=== PATIENT | male | born 1935 | race Caucasian/White ===

== ENCOUNTER 2019-05-27 17:24 | Emergency (ER) | payer MEDICARE ==
[2019-05-27 17:49] VITALS: BP 111/64; PULSE 80; RESP 18; TEMP 98.1
--- NOTE | 2019-05-27 18:16 | ED ---
General Adult HPI - General Chief complaint: Allergic Reaction Stated complaint: allergic reaction to medication Time Seen by Provider: 05/27/19 17:55 Source: patient Mode of arrival: ambulatory Limitations: no limitations - History of Present Illness Initial comments: Patient presents to the ED stating that he took a new medication called Myrbetriq for the first time at about 10:30 AM this morning, and about 2.5 hours later, he developed tingling along his upper lip diffusely and dizziness. Patient states that he has since developed different areas of extremity achiness. Patient states that his symptoms have all now resolved. Patient feels that his symptoms may be side effects of this new medication that he was started on today. Pt denies trauma or injury, fever or chills, rash/pruritus, tongue/lip/throat swelling, dysphagia, headache, focal weakness, visual changes, speech difficulty, chest pain, dyspnea, palpitations, syncope, abdominal pain, nausea/vomiting/diarrhea, bloody or melanotic stools, dysuria or urinary symptoms, or any other symptoms or complaints. - Related Data Home Medications Medication Instructions Recorded Confirmed Carvedilol [Coreg] 3.125 mg PO BID 07/13/16 05/27/19 Doxepin HCl [SINEquan] 50 mg PO HS 07/13/16 05/27/19 Doxepin [SINEquan] 30 mg PO HS 07/13/16 05/27/19 Levothyroxine Sodium [Synthroid] 150 mcg PO DAILY 07/13/16 05/27/19 Multivitamins, Thera [Multivitamin] 1 tab PO BID 07/13/16 05/27/19 Prevagen 10 mg PO DAILY 07/13/16 05/27/19 Rosuvastatin Calcium [Crestor] 5 mg PO HS 07/13/16 05/27/19 cycloSPORINE [Restasis] 1 drop BOTH EYES BID 07/13/16 05/27/19 Artificial Tears-Hypromellose 1 drops BOTH EYES TID 05/27/19 05/27/19 [Artificial Tear Drops] Mirabegron [Myrbetriq] 25 mg PO ONCE 05/27/19 05/27/19 Allergies Allergy/AdvReac Type Severity Reaction Status Date / Time amoxicillin Allergy Unknown Verified 05/27/19 18:30 clindamycin Allergy Rash/Hives Verified 05/27/19 18:30 doxycycline Allergy arms and Verified 05/27/19 18:30 legs turn roach, head felt "Strange" lincomycin [From Lincocin] Allergy Rash/Hives Verified 05/27/19 18:30 Penicillins Allergy Rash/Hives Verified 05/27/19 18:30 sulfamethoxazole Allergy Rash/Hives Verified 05/27/19 18:30 [From Bactrim] trimethoprim [From Bactrim] Allergy Rash/Hives Verified 05/27/19 18:30 Review of Systems ROS Statement: Those systems with pertinent positive or pertinent negative responses have been documented in the HPI. ROS Other: All systems not noted in ROS Statement are negative. Past Medical History Past Medical History: GERD/Reflux, Hyperlipidemia, Hypertension, Thyroid Disorder Additional Past Medical History / Comment(s): scleroderma, neuropathy, History of Any Multi-Drug Resistant Organisms: None Reported Past Surgical History: Adenoidectomy, Ear Surgery, Heart Catheterization, Hernia Repair, Tonsillectomy Additional Past Surgical History / Comment(s): left ear surgery x 2, robert cataracts Past Anesthesia/Blood Transfusion Reactions: No Reported Reaction Past Psychological History: No Psychological Hx Reported Smoking Status: Never smoker Past Alcohol Use History: None Reported Past Drug Use History: None Reported - Past Family History Brother(s) Family Medical History: Cancer Sister(s) Family Medical History: Cancer General Exam Limitations: no limitations General appearance: alert, in no apparent distress Head exam: Present: atraumatic, normocephalic Eye exam: Present: normal appearance, PERRL, EOMI ENT exam: Present: normal oropharynx, mucous membranes moist Neck exam: Absent: tenderness Respiratory exam: Present: normal lung sounds bilaterally. Absent: respiratory distress, wheezes, rales, rhonchi Cardiovascular Exam: Present: regular rate, normal rhythm, normal heart sounds, other (Normal radial pulses bilaterally) GI/Abdominal exam: Present: soft. Absent: distended, tenderness Extremities exam: Absent: tenderness, pedal edema, calf tenderness Neurological exam: Present: alert, oriented X3, CN II-XII intact. Absent: motor sensory deficit Psychiatric exam: Present: normal affect, normal mood Skin exam: Present: warm, dry, intact, normal color. Absent: rash Course Vital Signs 05/27/19 17:44 Temperature 98.1 F Pulse Rate 80 Respiratory 18 Rate Blood Pressure 111/64 O2 Sat by Pulse 98 Oximetry - Reevaluation(s) Reevaluation #1: 05/27/19 18:36 Patient states that his symptoms have now resolved, and he wishes to go home at this time. Patient is refusing the EKG and labs that I have ordered, and he wishes to leave AGAINST MEDICAL ADVICE at this time. Patient is A and O 4 and completely coherent at this time. I have explained to him the risks of leaving AMA, including further morbidity and even in the worst-case scenario, and he is able to verbalize understanding of these risks. Patient still wishes to leave AMA at this time. He was instructed to return to the ED should he change his mind, or if he develops new or worsening symptoms. He was also instructed to stop the new medication that he started taking today, and to follow up closely with his primary care provider. Patient feels comfortable with this time. Patient to sign AMA form prior to discharge from the ED today. Disposition Clinical Impression: Dizziness, Paresthesias Narrative: Suspected medication reaction Disposition: Left Against Medical Advice Condition: Stable Instructions (If sedation given, give patient instructions): Dizziness (ED), Paresthesia (ED) Additional Instructions: Return to the ER if you change your mind, or if you develop new or worsening symptoms. Follow up closely with your primary care provider. Is patient prescribed a controlled substance at d/c from ED?: No Referrals: Gerald Lazar MD [Primary Care Provider] - 1-2 days Time of Disposition: 18:40
== END 2019-05-27 18:43 | disposition left against medical advice (07) ==
LOC: EC 17:24
DX: R42 Dizziness and giddiness (principal); R20.2 Paresthesia of skin; T50.995A Adverse effect of other drugs, medicaments and biological substances, initial encounter; E78.5 Hyperlipidemia, unspecified; E07.9 Disorder of thyroid, unspecified; I10 Essential (primary) hypertension; Z95.818 Presence of other cardiac implants and grafts; Z53.29 Procedure and treatment not carried out because of patient's decision for other reasons; Z79.890 Hormone replacement therapy; Z79.899 Other long term (current) drug therapy; Z88.0 Allergy status to penicillin; Z88.1 Allergy status to other antibiotic agents; Z88.2 Allergy status to sulfonamides
CPT/HCPCS: 99283

== ENCOUNTER → 2020-02-12 | Outpatient (CLI) | payer MEDICARE | END | disposition home or self-care (01) | LOC: LABWHC1 12:04 | PROVIDERS: ATTEND Urology | DX: R97.20 Elevated prostate specific antigen [PSA] (principal) | CPT/HCPCS: 36415; 84153 ==

== ENCOUNTER 2023-02-23 19:16 | Emergency (ER) | payer MEDICARE ==
[2023-02-23] MEDS ORDERED: DIPH,PERTUS(ACELL)TETVAC-LF 0.5 ML VIAL IM ONE (21:06)
--- NOTE | 2023-02-23 21:07 | ED ---
Wound/Laceration HPI - General Chief Complaint: Wound/Laceration Stated Complaint: Rt arm injury Time Seen by Provider: 02/23/23 21:03 Source: patient Mode of arrival: ambulatory Limitations: no limitations - History of Present Illness Initial Comments: Patient is an 87-year-old male who presents the emergency department for skin tear to right forearm. Patient sustained injury today on his screen door. He reports minimal pain. Tetanus is not up-to-date. - Related Data Home Medications Medication Instructions Recorded Confirmed Carvedilol [Coreg] 3.125 mg PO BID 07/13/16 05/27/19 Doxepin HCl [SINEquan] 50 mg PO HS 07/13/16 05/27/19 Doxepin [SINEquan] 30 mg PO HS 07/13/16 05/27/19 Levothyroxine Sodium [Synthroid] 150 mcg PO DAILY 07/13/16 05/27/19 Multivitamins, Thera [Multivitamin] 1 tab PO BID 07/13/16 05/27/19 Prevagen 10 mg PO DAILY 07/13/16 05/27/19 Rosuvastatin Calcium [Crestor] 5 mg PO HS 07/13/16 05/27/19 cycloSPORINE [Restasis] 1 drop BOTH EYES BID 07/13/16 05/27/19 Artificial Tears-Hypromellose 1 drops BOTH EYES TID 05/27/19 05/27/19 [Artificial Tear Drops] Mirabegron [Myrbetriq] 25 mg PO ONCE 05/27/19 05/27/19 Allergies Allergy/AdvReac Type Severity Reaction Status Date / Time amoxicillin Allergy Unknown Verified 05/27/19 18:30 clindamycin Allergy Rash/Hives Verified 05/27/19 18:30 doxycycline Allergy arms and Verified 05/27/19 18:30 legs turn roach, head felt "Strange" lincomycin [From Lincocin] Allergy Rash/Hives Verified 05/27/19 18:30 Penicillins Allergy Rash/Hives Verified 05/27/19 18:30 sulfamethoxazole Allergy Rash/Hives Verified 05/27/19 18:30 [From Bactrim] trimethoprim [From Bactrim] Allergy Rash/Hives Verified 05/27/19 18:30 Review of Systems ROS Statement: Those systems with pertinent positive or pertinent negative responses have been documented in the HPI. ROS Other: All systems not noted in ROS Statement are negative. Past Medical History Past Medical History: GERD/Reflux, Hyperlipidemia, Hypertension, Thyroid Disorder Additional Past Medical History / Comment(s): scleroderma, neuropathy, History of Any Multi-Drug Resistant Organisms: None Reported Past Surgical History: Adenoidectomy, Ear Surgery, Heart Catheterization, Hernia Repair, Tonsillectomy Additional Past Surgical History / Comment(s): left ear surgery x 2, robert cataracts Past Anesthesia/Blood Transfusion Reactions: No Reported Reaction Past Psychological History: No Psychological Hx Reported Past Alcohol Use History: None Reported Past Drug Use History: None Reported - Past Family History Brother(s) Family Medical History: Cancer Sister(s) Family Medical History: Cancer General Exam Limitations: no limitations General appearance: alert Respiratory exam: Present: normal lung sounds bilaterally. Absent: respiratory distress, wheezes, rales, rhonchi, stridor Cardiovascular Exam: Present: regular rate, normal rhythm, normal heart sounds. Absent: systolic murmur, diastolic murmur, rubs, gallop, clicks Extremities exam: Present: other (1 x 2 cm skin tear non-bleeding right forearm. No laceration) Psychiatric exam: Present: normal affect, normal mood Skin exam: Present: warm, dry, intact, normal color. Absent: rash Course Vital Signs 02/23/23 02/23/23 19:46 21:16 Temperature 98 F 97.8 F Pulse Rate 82 62 Respiratory 16 14 Rate Blood Pressure 131/65 110/68 O2 Sat by Pulse 97 97 Oximetry Medical Decision Making - Medical Decision Making Was pt. sent in by a medical professional or institution (, PA, TRAVEL COUNSELOR, urgent care, hospital, or jail...) When possible be specific @ -No Did you speak to anyone other than the patient for history (EMS, parent, family, police, friend...)? What history was obtained from this source @ -No Did you review nursing and triage notes (agree or disagree)? Why? @ -I reviewed and agree with nursing and triage notes Were old charts reviewed (outside hosp., previous admission, EMS record, old EKG, old radiological studies, urgent care reports/EKG's, jail records)? Report findings @ -No old charts were reviewed Differential Diagnosis (chest pain, altered mental status, abdominal pain women, abdominal pain men, vaginal bleeding, weakness, fever, dyspnea, syncope, headache, dizziness, GI bleed, back pain, seizure, CVA, palpatations, mental health)? @Laceration, abrasion, skin tear EKG interpreted by me (3pts min.). @ -None X-rays interpreted by me (1pt min.). @ -None done CT interpreted by me (1pt min.). @ -None done U/S interpreted by me (1pt. min.). @ -None done What testing was considered but not performed or refused? (CT, X-rays, U/S, labs)? Why? @ -None What meds were considered but not given or refused? Why? @ -None Did you discuss the management of the patient with other professionals (professionals i.e. , PA, TRAVEL COUNSELOR, lab, RT, psych nurse, director of social work, monument mason, teacher, amphibious operations officer, case packer and sealer)? Give summary @ -No Was smoking cessation discussed for >3mins.? @ -No Was critical care preformed (if so, how long)? @ -No Were there social determinants of health that impacted care today? How? (Homelessness, low income, unemployed, alcoholism, drug addiction, transportation, low edu. Level, literacy, decrease access to med. care, correction, rehab)? @ -No Was there de-escalation of care discussed even if they declined (Discuss DNR or withdrawal of care, Hospice)? DNR status @ -No What co-morbidities impacted this encounter? (DM, HTN, Smoking, COPD, CAD, Cancer, CVA, ARF, Chemo, Hep., AIDS, mental health diagnosis, sleep apnea, morbid obesity)? @ -None Was patient admitted / discharged? Hospital course, mention meds given and route, prescriptions, significant lab abnormalities, going to OR and other pertinent info. @ -Discharged. Patient has small nonbleeding skin tear which was dressed in gauze and Scooby bandage. Tetanus updated wound care discussed in detail. Discussed return parameters. Undiagnosed new problem with uncertain prognosis? @ -No Drug Therapy requiring intensive monitoring for toxicity (Heparin, Nitro, Insulin, Cardizem)? @ -No Were any procedures done? @ -No Diagnosis/symptom? @ -skin tear Acute, or Chronic, or Acute on Chronic? @ -acute Uncomplicated (without systemic symptoms) or Complicated (systemic symptoms)? @ -uncomplicated Side effects of treatment? @ -No Exacerbation, Progression, or Severe Exacerbation? @ -No Poses a threat to life or bodily function? How? (Chest pain, [place], [place], pneumonia, PE, COPD, DKA, ARF, appy, cholecystitis, CVA, Diverticulitis, Homicidal, Suicidal, threat to staff... and all critical care pts) @ -No Dr. Brower is my attending Disposition Clinical Impression: Skin tear Disposition: HOME SELF-CARE Condition: Good Instructions (If sedation given, give patient instructions): Acute Wound Care (ED) Additional Instructions: Keep wound clean and dry. Wash with a mild soap. Take Tylenol or anti- inflammatories such as Motrin for pain. Follow-up with primary care provider in 1-2 days. Report back to the emergency department if you experience new, concerning, or worsening symptoms. Is patient prescribed a controlled substance at d/c from ED?: No Referrals: Hernan Danielson MD [REFERRING] - 1-2 days
[2023-02-23 21:18] VITALS: BP 110/68; PULSE 62; RESP 14; TEMP 97.8
== END 2023-02-23 21:18 | disposition home or self-care (01) ==
LOC: EC 19:16
DX: S51.811A Laceration without foreign body of right forearm, initial encounter (principal); E78.5 Hyperlipidemia, unspecified; I10 Essential (primary) hypertension; E07.9 Disorder of thyroid, unspecified; Z79.890 Hormone replacement therapy; Z79.899 Other long term (current) drug therapy; Z88.2 Allergy status to sulfonamides; Z88.1 Allergy status to other antibiotic agents; Z88.0 Allergy status to penicillin; Z88.6 Allergy status to analgesic agent; Z23 Encounter for immunization; X58.XXXA Exposure to other specified factors, initial encounter
CPT/HCPCS: 90471; 90715; 99283

== ENCOUNTER 2025-02-20 07:26 | Emergency (ER) | payer MEDICARE ==
[2025-02-20 07:34] VITALS: RESP 18; TEMP 97
--- NOTE | 2025-02-20 08:00 | ED ---
Nausea/Vomiting/Diarrhea HPI - General Chief complaint: Nausea/Vomiting/Diarrhea Stated complaint: VOMITING/NAUSEA Time Seen by Provider: 02/20/25 07:52 Source: patient, EMS, RN notes reviewed Mode of arrival: EMS Limitations: no limitations - History of Present Illness Initial comments: 89-year-old male presented to ER via EMS from [facility] for evaluation of nausea and vomiting. Patient reports he woke up around 4 AM feeling very nauseous. He admits to 3 episodes of nonbilious emesis. He denies mid emesis or coffee-ground emesis. He denies any reoccurring episodes of emesis. Patient denies any abdominal pain, diarrhea/constipation, fevers or chills. He reports his last bowel movement was yesterday and normal. He denies any dizziness, lightheadedness, chest pain, shortness of breath, urinary complaints or peripheral edema. Patient did not take anything for his symptoms prior to arrival. - Related Data Home Medications Medication Instructions Recorded Confirmed Carvedilol [Coreg] 3.125 mg PO BID 07/13/16 05/27/19 Doxepin HCl [SINEquan] 50 mg PO HS 07/13/16 05/27/19 Doxepin [SINEquan] 30 mg PO HS 07/13/16 05/27/19 Levothyroxine Sodium [Synthroid] 150 mcg PO DAILY 07/13/16 05/27/19 Multivitamins, Thera [Multivitamin] 1 tab PO BID 07/13/16 05/27/19 Prevagen 10 mg PO DAILY 07/13/16 05/27/19 Rosuvastatin Calcium [Crestor] 5 mg PO HS 07/13/16 05/27/19 cycloSPORINE [Restasis] 1 drop BOTH EYES BID 07/13/16 05/27/19 Artificial Tears-Hypromellose 1 drops BOTH EYES TID 05/27/19 05/27/19 [Artificial Tear Drops] Mirabegron [Myrbetriq] 25 mg PO ONCE 05/27/19 05/27/19 Allergies Allergy/AdvReac Type Severity Reaction Status Date / Time amoxicillin Allergy Unknown Verified 05/27/19 18:30 clindamycin Allergy Rash/Hives Verified 05/27/19 18:30 doxycycline Allergy arms and Verified 05/27/19 18:30 legs turn roach, head felt "Strange" lincomycin [From Lincocin] Allergy Rash/Hives Verified 05/27/19 18:30 Penicillins Allergy Rash/Hives Verified 05/27/19 18:30 sulfamethoxazole Allergy Rash/Hives Verified 05/27/19 18:30 [From Bactrim] trimethoprim [From Bactrim] Allergy Rash/Hives Verified 05/27/19 18:30 Review of Systems ROS Statement: Those systems with pertinent positive or pertinent negative responses have been documented in the HPI. ROS Other: All systems not noted in ROS Statement are negative. Past Medical History Past Medical History: GERD/Reflux, Hyperlipidemia, Hypertension, Thyroid Disorder Additional Past Medical History / Comment(s): scleroderma, neuropathy, History of Any Multi-Drug Resistant Organisms: None Reported Past Surgical History: Adenoidectomy, Ear Surgery, Heart Catheterization, Hernia Repair, Tonsillectomy Additional Past Surgical History / Comment(s): left ear surgery x 2, robert cataracts Past Anesthesia/Blood Transfusion Reactions: No Reported Reaction Past Psychological History: No Psychological Hx Reported Smoking Status: Former smoker Past Alcohol Use History: None Reported Past Drug Use History: None Reported - Past Family History Brother(s) Family Medical History: Cancer Sister(s) Family Medical History: Cancer General Exam Limitations: no limitations General appearance: alert, in no apparent distress Respiratory exam: Present: normal lung sounds bilaterally. Absent: respiratory distress, wheezes, rales, rhonchi, stridor Cardiovascular Exam: Present: regular rate, normal rhythm, normal heart sounds. Absent: systolic murmur, diastolic murmur, rubs, gallop, clicks GI/Abdominal exam: Present: soft, normal bowel sounds. Absent: distended, tenderness, guarding, rebound, rigid Extremities exam: Present: normal inspection, full ROM, normal capillary refill. Absent: tenderness, pedal edema, joint swelling, calf tenderness Neurological exam: Present: alert, oriented X3, CN II-XII intact Skin exam: Present: warm, dry, intact, normal color. Absent: rash Course Vital Signs 02/20/25 02/20/25 07:30 09:55 Temperature 97.0 F L Pulse Rate 73 74 Respiratory 18 18 Rate Blood Pressure 143/66 139/63 O2 Sat by Pulse 99 99 Oximetry Medical Decision Making - Medical Decision Making Was pt. sent in by a medical professional or institution (Dr., PA, D[facility], urgent care, hospital, or group home...) When possible be specific @ -Patient presents from [facility] for evaluation of nausea and vomiting Did you speak to anyone other than the patient for history (EMS, parent, family, police, friend...)? What history was obtained from this source @ -No Did you review nursing and triage notes (agree or disagree)? Why? @ -I reviewed and agree with nursing and triage notes Were old charts reviewed (outside hosp., previous admission, EMS record, old EKG, old radiological studies, urgent care reports/EKG's, group home records)? Report findings @ -No old charts were reviewed Differential Diagnosis (chest pain, altered mental status, abdominal pain women, abdominal pain men, vaginal bleeding, weakness, fever, dyspnea, syncope, headache, dizziness, GI bleed, back pain, seizure, CVA, palpatations, mental health, musculoskeletal)? @ -Appendicitis, cholecystitis, diverticulosis, ischemic bowel, pancreatitis, hepatitis, UTI, gastroenteritis, AAA, incarcerated hernia, bowel obstruction, constipation, inflammatory bowel, hepatitis, peptic ulcer disease, splenic infar ction, perforated viscus, testicular torsion, this is not meant to be an all- inclusive list EKG interpreted by me (3pts min.). @ -As above X-rays interpreted by me (1pt min.). @ -None done CT interpreted by me (1pt min.). @ -None done U/S interpreted by me (1pt. min.). @ -None done What testing was considered but not performed or refused? (CT, X-rays, U/S, labs)? Why? @ -None What meds were considered but not given or refused? Why? @ -None Did you discuss the management of the patient with other professionals (professionals i.e. [facility], [facility], lab, RT, psych nurse, drug abuse social worker, science job titles, t eacher, community service officer, corrections caseworker)? Give summary @ -No Was smoking cessation discussed for >3mins.? @ -No Was critical care preformed (if so, how long)? @ -No Were there social determinants of health that impacted care today? How? (Homelessness, low income, unemployed, alcoholism, drug addiction, transportation, low edu. Level, literacy, decrease access to med. care, senior care, rehab)? @ -No Was there de-escalation of care discussed even if they declined (Discuss DNR or withdrawal of care, Hospice)? DNR status @ -No What co-morbidities impacted this encounter? (DM, HTN, Smoking, COPD, CAD, Cancer, CVA, ARF, Chemo, Hep., AIDS, mental health diagnosis, sleep apnea, morbid obesity)? @ -None Was patient admitted / discharged? Hospital course, mention meds given and route, prescriptions, significant lab abnormalities, going to OR and other pertinent info. @ -Discharge. 89-year-old male presented the ER for evaluation of nausea and vomiting. Vital signs stable. Upon examination, patient ambulating in exam room no signs of acute distress. Patient reports no abdominal pain and there is no abdominal tenderness to palpation. WBC 10.84 left shift. Hemoglobin 12.4. Troponin undetectable, <0.012. CMP unimpressive. Urinalysis with trace ketones no evidence of infection. EKG showing sinus rhythm with first-degree AV block. Patient provided with IV fluid bolus. No recurrent bouts of emesis emergency department. Patient tolerating oral intake. Upon reevaluation, patient educated on today's findings patient eager for discharge and will be discharged stable condition back to [facility]. Return parameters discussed. Patient verbally expressed understanding agree with care plan. Case discussed with ED attending, Dr. Riggs. Undiagnosed new problem with uncertain prognosis? @ -No Drug Therapy requiring intensive monitoring for toxicity (Heparin, Nitro, Insulin, Cardizem)? @ -No Were any procedures done? @ -No Diagnosis/symptom? @ -Nausea and vomiting Acute, or Chronic, or Acute on Chronic? @ -Acute Uncomplicated (without systemic symptoms) or Complicated (systemic symptoms)? @ -Uncomplicated Side effects of treatment? @ -No Exacerbation, Progression, or Severe Exacerbation? @ -No Poses a threat to life or bodily function? How? (Chest pain, [place], [place], pneumonia, PE, COPD, DKA, ARF, appy, cholecystitis, CVA, Diverticulitis, Homicidal, Suicidal, threat to staff... and all critical care pts) @ -No - Lab Data Result diagrams: 02/20/25 08:23 02/20/25 08:23 Lab Results 06/24/25 06/24/25 06/24/25 Range/Units 08:23 08:23 08:23 WBC 10.84 H (4.50-10.00) 10*3/uL RBC 3.90 L (4.40-5.60) 10*6/uL Hgb 12.4 L (13.0-17.0) g/dL Hct 35.8 L (39.6-50.0) % MCV 91.8 (80.0-97.0) fL MCH 31.8 (27.0-32.0) pg MCHC 34.6 (32.0-37.0) g/dL Plt Count 256 (140-440) 10*3/uL MPV 11.8 (9.5-12.2) fL Immature Gran % (Auto) 0.6 % Neutrophils % 80.3 % Lymphocytes % 6.2 % Monocytes % 11.3 % Eosinophils % 1.1 % Basophils % 0.5 % Immature Gran # 0.07 H (0.00-0.04) 10*3/uL Neutrophils # 8.71 H (1.80-7.70) 10*3/uL Lymphocytes # 0.67 L (0.90-5.00) 10*3/uL Monocytes # 1.22 H (0.20-1.00) 10*3/uL Eosinophils # 0.12 (0.04-0.35) 10*3/uL Basophils # 0.05 (0.00-0.10) 10*3/uL PT 10.9 (10.0-12.5) sec INR 1.0 (<1.2) APTT 22.2 (22.0-30.0) sec Sodium (137-145) mmol/L Potassium (3.5-5.1) mmol/L Chloride (98-107) mmol/L Carbon Dioxide (22-30) mmol/L Anion Gap mmol/L BUN (9-20) mg/dL Creatinine (0.66-1.25) mg/dL Est GFR (CKD-EPI)AfAm (>60 ml/min/1.73 sqM) Est GFR (CKD-EPI)NonAf (>60 ml/min/1.73 sqM) Glucose (74-99) mg/dL Calcium (8.4-10.2) mg/dL Total Bilirubin (0.2-1.3) mg/dL AST (17-59) U/L ALT (4-49) U/L Alkaline Phosphatase (38-126) U/L Troponin I (0.000-0.034) ng/mL Total Protein (6.3-8.2) g/dL Albumin (3.5-5.0) g/dL Lipase (23-300) U/L Urine Color Colorless Urine Appearance Clear (Clear) Urine pH 7.0 (5.0-8.0) Ur Specific [place] 1.012 (1.001-1.035) Urine Protein Negative (Negative) Urine Glucose (UA) Negative (Negative) Urine Ketones Trace H (Negative) Urine Blood Negative (Negative) Urine Nitrite Negative (Negative) Urine Bilirubin Negative (Negative) Urine Urobilinogen <2.0 (<2.0) mg/dL Ur Leukocyte Esterase Negative (Negative) 02/20/25 02/20/25 Range/Units 08:23 08:23 WBC (4.50-10.00) 10*3/uL RBC (4.40-5.60) 10*6/uL Hgb (13.0-17.0) g/dL Hct (39.6-50.0) % MCV (80.0-97.0) fL MCH (27.0-32.0) pg MCHC (32.0-37.0) g/dL Plt Count (140-440) 10*3/uL MPV (9.5-12.2) fL Immature Gran % (Auto) % Neutrophils % % Lymphocytes % % Monocytes % % Eosinophils % % Basophils % % Immature Gran # (0.00-0.04) 10*3/uL Neutrophils # (1.80-7.70) 10*3/uL Lymphocytes # (0.90-5.00) 10*3/uL Monocytes # (0.20-1.00) 10*3/uL Eosinophils # (0.04-0.35) 10*3/uL Basophils # (0.00-0.10) 10*3/uL PT (10.0-12.5) sec INR (<1.2) APTT (22.0-30.0) sec Sodium 135 L (137-145) mmol/L Potassium 3.9 (3.5-5.1) mmol/L Chloride 97 L (98-107) mmol/L Carbon Dioxide 26 (22-30) mmol/L Anion Gap 12 mmol/L BUN 23 H (9-20) mg/dL Creatinine 0.80 (0.66-1.25) mg/dL Est GFR (CKD-EPI)AfAm >90 (>60 ml/min/1.73 sqM) Est GFR (CKD-EPI)NonAf 81 (>60 ml/min/1.73 sqM) Glucose 114 H (74-99) mg/dL Calcium 9.9 (8.4-10.2) mg/dL Total Bilirubin 0.6 (0.2-1.3) mg/dL AST 44 (17-59) U/L ALT 60 H (4-49) U/L Alkaline Phosphatase 176 H (38-126) U/L Troponin I <0.012 (0.000-0.034) ng/mL Total Protein 8.8 H (6.3-8.2) g/dL Albumin 4.7 (3.5-5.0) g/dL Lipase 296 (23-300) U/L Urine Color Urine Appearance (Clear) Urine pH (5.0-8.0) Ur Specific [place] (1.001-1.035) Urine Protein (Negative) Urine Glucose (UA) (Negative) Urine Ketones (Negative) Urine Blood (Negative) Urine Nitrite (Negative) Urine Bilirubin (Negative) Urine Urobilinogen (<2.0) mg/dL Ur Leukocyte Esterase (Negative) - EKG Data -: EKG Interpreted by Ne EKG Comments: EKG taken at 7: 57 showing a sinus rhythm with a first-degree AV block. Ventricular rate 66, TX interval 213, QRS duration 131, QT/QTc 420/433 Disposition Clinical Impression: Nausea & vomiting Disposition: HOME SELF-CARE Condition: Stable Instructions (If sedation given, give patient instructions): Acute Nausea and Vomiting (ED) Additional Instructions: Follow-up with PCP. Return to the ER for any new or worsening symtpms Is patient prescribed a controlled substance at d/c from ED?: No Referrals: Gerald Lazar MD [Primary Care Provider] - 1-2 days Time of Disposition: 07:09
[2025-02-20] MEDS: SODIUM CHLORIDE 0.9% 500 ML 500 ML IV ONE (08:13)
[2025-02-20 08:37] LABS: Basophils # (A) 0.05 10*3/uL (0.00-0.10); Basophils % (A) 0.5 %; Eosinophils # (A) 0.12 10*3/uL (0.04-0.35); Eosinophils % (A) 1.1 %; HCT 35.8 % (39.6-50.0); HGB 12.4 g/dL (13.0-17.0); Lymphocytes # (A) 0.67 10*3/uL (0.90-5.00); Lymphocytes % (A) 6.2 %; MCH 31.8 pg (27.0-32.0); MCHC 34.6 g/dL (32.0-37.0); MCV 91.8 fL (80.0-97.0); Mean Platelet Volume 11.8 fL (9.5-12.2); Monocytes # (A) 1.22 10*3/uL (0.20-1.00); Monocytes % (A) 11.3 %; Neutrophils # (A) 8.71 10*3/uL (1.80-7.70); Neutrophils % (A) 80.3 %; Platelet Count 256 10*3/uL (140-440); RDW 12.2 % (11.5-14.5); WBC 10.84 10*3/uL (4.50-10.00)
[2025-02-20 08:42] LABS: Appearance,Urine Clear (Clear); Bilirubin,Urine Negative (Negative); Blood,Urine Negative (Negative); Color,Urine Colorless; Glucose,Urine (UA) Negative (Negative); Ketones,Urine Trace (Negative); Leukocyte Esterase,Urine Negative (Negative); Nitrite,Urine Negative (Negative); Protein,Urine Negative (Negative); Specific Gravity,Urine 1.012 (1.001-1.035); Urobilinogen,Urine <2.0 mg/dL (<2.0)
[2025-02-20 08:56] LABS: ALT 60 U/L (4-49); AST 44 U/L (17-59); African American GFR (CKD) >90 (>60 ml/min/1.73 sqM); Albumin 4.7 g/dL (3.5-5.0); Alkaline Phosphatase 176 U/L (38-126); Anion Gap 12 mmol/L; Blood Urea Nitrogen 23 mg/dL (9-20); Calcium 9.9 mg/dL (8.4-10.2); Carbon Dioxide 26 mmol/L (22-30); Chloride 97 mmol/L (98-107); Glucose 114 mg/dL (74-99); Lipase 296 U/L (23-300); Non-African American GFR(CKD) 81 (>60 ml/min/1.73 sqM); Potassium 3.9 mmol/L (3.5-5.1); Sodium 135 mmol/L (137-145); Total Bilirubin 0.6 mg/dL (0.2-1.3); Total Protein 8.8 g/dL (6.3-8.2)
[2025-02-20 09:23] LABS: Partial Thromboplastin Time 22.2 sec (22.0-30.0); Prothrombin Time 10.9 sec (10.0-12.5)
[2025-02-20 09:57] VITALS: BP 139/63; PULSE 74
== END 2025-02-20 10:13 | disposition home or self-care (01) ==
LOC: EC 07:26
DX: R11.2 Nausea with vomiting, unspecified (principal); I44.0 Atrioventricular block, first degree; Z87.891 Personal history of nicotine dependence; Z88.1 Allergy status to other antibiotic agents; Z88.0 Allergy status to penicillin; Z88.2 Allergy status to sulfonamides; Z88.8 Allergy status to other drugs, medicaments and biological substances
CPT/HCPCS: 36415; 80053; 81003; 83690; 84484; 85025; 85610; 85730; 93005; 99284